=== PATIENT | female | born 1945 | race Caucasian/White ===

== ENCOUNTER 2017-08-22 09:06 | Outpatient (RCR) | payer MEDICARE ==
[2017-08-22 09:25] LABS: BASOPHILS # (AUTO) 0.1 10^3/uL (0.0-0.1); BASOPHILS % (AUTO) 1 % (0-10); EOSINOPHILS # (AUTO) 0.1 10^3/uL (0.0-0.3); EOSINOPHILS % (AUTO) 3 % (0-10); HEMATOCRIT 43 % (35-52); HEMOGLOBIN 14.8 G/DL (11.5-16.0); LYMPHOCYTES # (AUTO) 1.2 X 10^3 (1.0-4.0); LYMPHOCYTES % (AUTO) 30 % (12-44); MEAN CORPUSCULAR HEMOGLOBIN 31 PG (25-34); MEAN CORPUSCULAR HGB CONC 34 G/DL (32-36); MEAN CORPUSCULAR VOLUME 90 FL (80-99); MEAN PLATELET VOLUME 9.1 FL (7.4-10.4); MONOCYTES # (AUTO) 0.5 X 10^3 (0.0-1.0); MONOCYTES % (AUTO) 12 % (0-12); NEUTROPHILS # (AUTO) 2.2 X 10^3 (1.8-7.8); NEUTROPHILS % (AUTO) 54 % (42-75); PLATELET COUNT 246 10^3/uL (130-400); RED BLOOD COUNT 4.78 10^6/uL (4.35-5.85); RED CELL DISTRIBUTION WIDTH 14.9 % (10.0-14.5)
[2017-08-22 09:52] LABS: ALANINE AMINOTRANSFERASE 28 U/L (0-55); ALBUMIN 4.1 GM/DL (3.2-4.5); ALKALINE PHOSPHATASE 79 U/L (40-136); BILIRUBIN,TOTAL 0.3 MG/DL (0.1-1.0); BUN/CREATININE RATIO 19; CALCIUM 9.8 MG/DL (8.5-10.1); CARBON DIOXIDE 27 MMOL/L (21-32); CHLORIDE 107 MMOL/L (98-107); CREATININE SERUM 0.75 MG/DL (0.60-1.30); GFR ESTIMATED > 60; POTASSIUM 4.3 MMOL/L (3.6-5.0); SODIUM 141 MMOL/L (135-145); TOTAL PROTEIN 7.1 GM/DL (6.4-8.2)
[2017-08-22 09:54] LABS: GLUCOSE 53 MG/DL (70-105)
== END 2017-09-11 | disposition home or self-care (01) ==
LOC: ONC 09:06
PROVIDERS: ATTEND Internal Medicine Hematology & Oncology
DX: Z51.0 Encounter for antineoplastic radiation therapy (principal); D05.11 Intraductal carcinoma in situ of right breast
CPT/HCPCS: 77280; 77290; 77295; 77300; 77307; 77334; 77336; 77417; 80053; 85025; 99204; 99213; 99214

== ENCOUNTER → 2017-12-17 | Outpatient (RCR) | payer MEDICARE ==
[2017-09-18 13:08] LABS: BASOPHILS % (AUTO) 1 % (0-10); EOSINOPHILS # (AUTO) 0.1 10^3/uL (0.0-0.3); EOSINOPHILS % (AUTO) 2 % (0-10); HEMATOCRIT 43 % (35-52); HEMOGLOBIN 14.3 G/DL (11.5-16.0); LYMPHOCYTES # (AUTO) 1.5 X 10^3 (1.0-4.0); LYMPHOCYTES % (AUTO) 28 % (12-44); MEAN CORPUSCULAR HEMOGLOBIN 30 PG (25-34); MEAN CORPUSCULAR HGB CONC 34 G/DL (32-36); MEAN CORPUSCULAR VOLUME 90 FL (80-99); MEAN PLATELET VOLUME 8.8 FL (7.4-10.4); MONOCYTES # (AUTO) 0.4 X 10^3 (0.0-1.0); MONOCYTES % (AUTO) 8 % (0-12); NEUTROPHILS # (AUTO) 3.3 X 10^3 (1.8-7.8); NEUTROPHILS % (AUTO) 62 % (42-75); PLATELET COUNT 239 10^3/uL (130-400); RED BLOOD COUNT 4.72 10^6/uL (4.35-5.85); RED CELL DISTRIBUTION WIDTH 14.9 % (10.0-14.5); WHITE BLOOD COUNT 5.4 10^3/uL (4.3-11.0)
[2017-09-18 13:37] LABS: ALANINE AMINOTRANSFERASE 12 U/L (0-55); ALKALINE PHOSPHATASE 72 U/L (40-136); BILIRUBIN,TOTAL 0.4 MG/DL (0.1-1.0); BUN/CREATININE RATIO 24; CALCIUM 8.7 MG/DL (8.5-10.1); CARBON DIOXIDE 26 MMOL/L (21-32); CHLORIDE 108 MMOL/L (98-107); CREATININE SERUM 0.74 MG/DL (0.60-1.30); GFR ESTIMATED > 60; POTASSIUM 3.8 MMOL/L (3.6-5.0); SODIUM 142 MMOL/L (135-145); TOTAL PROTEIN 6.7 GM/DL (6.4-8.2)
[2017-09-18 13:38] LABS: GLUCOSE 52 MG/DL (70-105)
[2017-12-17 12:44] LABS: BASOPHILS % (AUTO) 1 % (0-10); EOSINOPHILS # (AUTO) 0.2 10^3/uL (0.0-0.3); EOSINOPHILS % (AUTO) 4 % (0-10); HEMATOCRIT 43 % (35-52); HEMOGLOBIN 14.2 G/DL (11.5-16.0); LYMPHOCYTES # (AUTO) 1.5 X 10^3 (1.0-4.0); LYMPHOCYTES % (AUTO) 27 % (12-44); MEAN CORPUSCULAR HEMOGLOBIN 31 PG (25-34); MEAN CORPUSCULAR HGB CONC 33 G/DL (32-36); MEAN CORPUSCULAR VOLUME 93 FL (80-99); MEAN PLATELET VOLUME 8.8 FL (7.4-10.4); MONOCYTES # (AUTO) 0.5 X 10^3 (0.0-1.0); MONOCYTES % (AUTO) 8 % (0-12); NEUTROPHILS # (AUTO) 3.4 X 10^3 (1.8-7.8); NEUTROPHILS % (AUTO) 61 % (42-75); PLATELET COUNT 257 10^3/uL (130-400); RED BLOOD COUNT 4.61 10^6/uL (4.35-5.85); RED CELL DISTRIBUTION WIDTH 14.9 % (10.0-14.5); WHITE BLOOD COUNT 5.6 10^3/uL (4.3-11.0)
[2017-12-17 13:07] LABS: ALANINE AMINOTRANSFERASE 15 U/L (0-55); ALKALINE PHOSPHATASE 54 U/L (40-136); BILIRUBIN,TOTAL 0.4 MG/DL (0.1-1.0); BUN/CREATININE RATIO 18; CALCIUM 8.9 MG/DL (8.5-10.1); CARBON DIOXIDE 28 MMOL/L (21-32); CHLORIDE 110 MMOL/L (98-107); CREATININE SERUM 0.79 MG/DL (0.60-1.30); GFR ESTIMATED > 60; GLUCOSE 78 MG/DL (70-105); POTASSIUM 3.9 MMOL/L (3.6-5.0); SODIUM 143 MMOL/L (135-145); TOTAL PROTEIN 6.7 GM/DL (6.4-8.2)
== END | disposition home or self-care (01) ==
LOC: ONC 09-18 12:46
PROVIDERS: ATTEND Internal Medicine Hematology & Oncology
DX: D05.11 Intraductal carcinoma in situ of right breast (principal)
CPT/HCPCS: 36415; 80053; 85025; 99213

== ENCOUNTER 2018-07-04 09:18 | Outpatient (RCR) | payer MEDICARE ==
[2018-07-04 09:26] LABS: BASOPHILS # (AUTO) 0.1 10^3/uL (0.0-0.1); BASOPHILS % (AUTO) 1 % (0-10); EOSINOPHILS # (AUTO) 0.1 10^3/uL (0.0-0.3); EOSINOPHILS % (AUTO) 2 % (0-10); HEMATOCRIT 42 % (35-52); HEMOGLOBIN 13.9 G/DL (11.5-16.0); LYMPHOCYTES # (AUTO) 1.8 X 10^3 (1.0-4.0); LYMPHOCYTES % (AUTO) 31 % (12-44); MEAN CORPUSCULAR HEMOGLOBIN 31 PG (25-34); MEAN CORPUSCULAR HGB CONC 33 G/DL (32-36); MEAN CORPUSCULAR VOLUME 95 FL (80-99); MEAN PLATELET VOLUME 8.8 FL (7.4-10.4); MONOCYTES # (AUTO) 0.5 X 10^3 (0.0-1.0); MONOCYTES % (AUTO) 8 % (0-12); NEUTROPHILS # (AUTO) 3.3 X 10^3 (1.8-7.8); NEUTROPHILS % (AUTO) 58 % (42-75); PLATELET COUNT 254 10^3/uL (130-400); RED CELL DISTRIBUTION WIDTH 14.5 % (10.0-14.5); WHITE BLOOD COUNT 5.7 10^3/uL (4.3-11.0)
[2018-07-04 09:44] LABS: ALANINE AMINOTRANSFERASE 21 U/L (0-55); ALKALINE PHOSPHATASE 60 U/L (40-136); BILIRUBIN,TOTAL 0.3 MG/DL (0.1-1.0); BUN/CREATININE RATIO 18; CALCIUM 9.3 MG/DL (8.5-10.1); CARBON DIOXIDE 22 MMOL/L (21-32); CHLORIDE 108 MMOL/L (98-107); CREATININE SERUM 0.76 MG/DL (0.60-1.30); GFR ESTIMATED > 60; GLUCOSE 91 MG/DL (70-105); POTASSIUM 4.3 MMOL/L (3.6-5.0); SODIUM 141 MMOL/L (135-145); TOTAL PROTEIN 6.7 GM/DL (6.4-8.2)
== END 2018-10-02 | disposition home or self-care (01) ==
LOC: ONC 09:18
PROVIDERS: ATTEND Internal Medicine Hematology & Oncology
DX: D05.11 Intraductal carcinoma in situ of right breast (principal); M19.91 Primary osteoarthritis, unspecified site; Z79.810 Long term (current) use of selective estrogen receptor modulators (SERMs); Z79.82 Long term (current) use of aspirin; Z79.899 Other long term (current) drug therapy
CPT/HCPCS: 36415; 80053; 85025

== ENCOUNTER 2018-12-23 10:03 | Outpatient (RCR) | payer MEDICARE ==
[2018-12-23 10:33] LABS: BASOPHILS # (AUTO) 0.1 10^3/uL (0.0-0.1); BASOPHILS % (AUTO) 1 % (0-10); EOSINOPHILS # (AUTO) 0.2 10^3/uL (0.0-0.3); EOSINOPHILS % (AUTO) 3 % (0-10); HEMATOCRIT 42 % (35-52); HEMOGLOBIN 13.9 G/DL (11.5-16.0); LYMPHOCYTES # (AUTO) 1.7 X 10^3 (1.0-4.0); LYMPHOCYTES % (AUTO) 33 % (12-44); MEAN CORPUSCULAR HEMOGLOBIN 32 PG (25-34); MEAN CORPUSCULAR HGB CONC 33 G/DL (32-36); MEAN CORPUSCULAR VOLUME 94 FL (80-99); MEAN PLATELET VOLUME 8.8 FL (7.4-10.4); MONOCYTES # (AUTO) 0.4 X 10^3 (0.0-1.0); MONOCYTES % (AUTO) 8 % (0-12); NEUTROPHILS # (AUTO) 2.8 X 10^3 (1.8-7.8); NEUTROPHILS % (AUTO) 54 % (42-75); PLATELET COUNT 244 10^3/uL (130-400); RED CELL DISTRIBUTION WIDTH 14.3 % (10.0-14.5); WHITE BLOOD COUNT 5.1 10^3/uL (4.3-11.0)
[2018-12-23 10:50] LABS: ALANINE AMINOTRANSFERASE 17 U/L (0-55); ALBUMIN 3.9 GM/DL (3.2-4.5); ALKALINE PHOSPHATASE 62 U/L (40-136); BILIRUBIN,TOTAL 0.4 MG/DL (0.1-1.0); BUN/CREATININE RATIO 18; CALCIUM 8.6 MG/DL (8.5-10.1); CARBON DIOXIDE 27 MMOL/L (21-32); CHLORIDE 108 MMOL/L (98-107); CREATININE SERUM 0.78 MG/DL (0.60-1.30); GFR ESTIMATED > 60; GLUCOSE 79 MG/DL (70-105); POTASSIUM 4.1 MMOL/L (3.6-5.0); SODIUM 140 MMOL/L (135-145); TOTAL PROTEIN 6.4 GM/DL (6.4-8.2)
== END 2019-03-23 | disposition home or self-care (01) ==
LOC: ONC 10:03
PROVIDERS: ATTEND Internal Medicine Hematology & Oncology
DX: D05.11 Intraductal carcinoma in situ of right breast (principal); M19.91 Primary osteoarthritis, unspecified site; Z79.810 Long term (current) use of selective estrogen receptor modulators (SERMs); Z79.82 Long term (current) use of aspirin; Z79.899 Other long term (current) drug therapy
CPT/HCPCS: 36415; 80053; 85025; 99213

== ENCOUNTER → 2019-01-27 | Outpatient (CLI) | payer MEDICARE ==
--- NOTE | 2019-01-27 15:53 | Diagnostic Imaging Report ---
INDICATION: Postmenopausal screening for osteoporosis. COMPARISON: None. FINDINGS: AP Spine L1-L4: [BMD (g/cm2): 1.075] [T-Score: -1.0] [Z-Score: 0.8] [BMD Previous: NA] [BMD % Change: NA] LT Hip Neck: [BMD (g/cm2): 0.835] [T-Score: -1.5] [Z-Score: 0.5] LT Hip Total: [BMD (g/cm2):0.905] [T-Score:-0.8] [Z-Score: 1.0] [BMD Previous: NA] [BMD % Change: NA] RT Hip Neck: [BMD (g/cm2):NA] [T-Score:NA] [Z-Score:NA] RT Hip Total: [BMD (g/cm2):NA] [T-score:NA] [Z-Score:NA] [BMD Previous:NA] [BMD % Change:NA] *Indicates significant change from prior examination based on 95% confidence level. World Health Organization criteria for BMD interpretation classify patients as Normal (T-score at or above -1.0), Osteopenic (T-score between -1.0 and -2.5) or Osteoporotic (T-score at or below -2.5). LIMITATIONS AND MODIFICATION: None. FRACTURE RISK (FRAX SCORE): The ten year probability of (%): Major Osteoporotic Fracture: [17.7] Hip Fracture: [3.4] IMPRESSION: 1. Osteopenia (Low bone mass). 2. Baseline examination. 3. See below National Osteoporosis Foundation guidelines on when to potentially initiate pharmacologic therapy. Based on the National Osteoporosis Foundation Guidelines, pharmacologic treatment should be initiated in any of the following, unless clinical conditions suggest otherwise: * Any patient with prior fragility fracture of the hip or vertebrae. A spine fracture indicates 5X risk for subsequent spine fracture and 2X risk for subsequent hip fracture. * Osteoporosis (T-score <-2.5). * Postmenopausal women and men age 50 and older with low bone mass/osteopenia (T-score between -1.0 and -2.5) by DXA and 10-year major osteoporotic fracture greater than 20% or a 10-year probability of hip fracture greater than 3%. These fracture risks are supplied above in the FRAX score, if applicable. * Clinician judgement and/or patient preferences may indicate treatment for people with 10-year fracture probabilities above or below these levels. Dictated by: Dictated on workstation # [id number]
== END ==
LOC: RAD 13:06
PROVIDERS: ATTEND Family Medicine
DX: Z13.820 Encounter for screening for osteoporosis (principal); M85.80 Other specified disorders of bone density and structure, unspecified site; Z78.0 Asymptomatic menopausal state
CPT/HCPCS: 77080

== ENCOUNTER 2019-09-24 10:16 | Outpatient (RCR) | payer MEDICARE | END 2019-12-23 | disposition home or self-care (01) | LOC: ONC 10:16 | PROVIDERS: ATTEND Internal Medicine Hematology & Oncology | DX: D05.11 Intraductal carcinoma in situ of right breast (principal); M19.91 Primary osteoarthritis, unspecified site; Z79.810 Long term (current) use of selective estrogen receptor modulators (SERMs); Z79.82 Long term (current) use of aspirin; Z79.899 Other long term (current) drug therapy | CPT/HCPCS: 99213 ==

== ENCOUNTER 2020-03-30 09:58 | Outpatient (RCR) | payer MEDICARE ==
[2020-03-30 10:19] LABS: BASOPHILS # (AUTO) 0.1 10^3/uL (0.0-0.1); BASOPHILS % (AUTO) 1 % (0-10); EOSINOPHILS # (AUTO) 0.2 10^3/uL (0.0-0.3); EOSINOPHILS % (AUTO) 4 % (0-10); HEMATOCRIT 44 % (35-52); HEMOGLOBIN 14.3 g/dL (11.5-16.0); LYMPHOCYTES # (AUTO) 1.8 10^3/uL (1.0-4.0); LYMPHOCYTES % (AUTO) 33 % (12-44); MEAN CORPUSCULAR HEMOGLOBIN 31 pg (25-34); MEAN CORPUSCULAR HGB CONC 33 g/dL (32-36); MEAN CORPUSCULAR VOLUME 96 fL (80-99); MEAN PLATELET VOLUME 8.7 fL (9.0-12.2); MONOCYTES # (AUTO) 0.5 10^3/uL (0.0-1.0); MONOCYTES % (AUTO) 8 % (0-12); NEUTROPHILS % (AUTO) 54 % (42-75); PLATELET COUNT 237 10^3/uL (130-400); WHITE BLOOD COUNT 5.6 10^3/uL (4.3-11.0)
[2020-03-30 10:41] LABS: ALANINE AMINOTRANSFERASE 22 U/L (0-55); ALBUMIN 3.8 GM/DL (3.2-4.5); ALKALINE PHOSPHATASE 58 U/L (40-136); BILIRUBIN,TOTAL 0.3 MG/DL (0.1-1.0); BUN/CREATININE RATIO 21; CALCIUM 9.1 MG/DL (8.5-10.1); CARBON DIOXIDE 28 MMOL/L (21-32); CHLORIDE 107 MMOL/L (98-107); CREATININE SERUM 0.78 MG/DL (0.60-1.30); GFR ESTIMATED > 60; GLUCOSE 76 MG/DL (70-105); POTASSIUM 4.2 MMOL/L (3.6-5.0); SODIUM 141 MMOL/L (135-145); TOTAL PROTEIN 6.8 GM/DL (6.4-8.2)
== END 2020-06-28 | disposition home or self-care (01) ==
LOC: ONC 09:58
PROVIDERS: ATTEND Internal Medicine Hematology & Oncology
DX: D05.11 Intraductal carcinoma in situ of right breast (principal); Z98.890 Other specified postprocedural states; Z92.3 Personal history of irradiation
CPT/HCPCS: 80053; 85025; G0463; 99213

== ENCOUNTER → 2020-10-06 | Outpatient (CLI) | payer MEDICARE ==
[2020-10-06 10:44] LABS: BASOPHILS # (AUTO) 0.1 10^3/uL (0.0-0.1); BASOPHILS % (AUTO) 1 % (0-10); EOSINOPHILS # (AUTO) 0.2 10^3/uL (0.0-0.3); EOSINOPHILS % (AUTO) 3 % (0-10); HEMATOCRIT 42 % (35-52); HEMOGLOBIN 13.8 g/dL (11.5-16.0); LYMPHOCYTES # (AUTO) 2.2 10^3/uL (1.0-4.0); LYMPHOCYTES % (AUTO) 34 % (12-44); MEAN CORPUSCULAR HEMOGLOBIN 32 pg (25-34); MEAN CORPUSCULAR HGB CONC 33 g/dL (32-36); MEAN CORPUSCULAR VOLUME 96 fL (80-99); MEAN PLATELET VOLUME 8.7 fL (9.0-12.2); MONOCYTES # (AUTO) 0.5 10^3/uL (0.0-1.0); MONOCYTES % (AUTO) 7 % (0-12); NEUTROPHILS # (AUTO) 3.5 10^3/uL (1.8-7.8); NEUTROPHILS % (AUTO) 55 % (42-75); PLATELET COUNT 239 10^3/uL (130-400); WHITE BLOOD COUNT 6.4 10^3/uL (4.3-11.0)
[2020-10-06 11:10] LABS: ALANINE AMINOTRANSFERASE 21 U/L (0-55); ALBUMIN 3.6 GM/DL (3.2-4.5); ALKALINE PHOSPHATASE 58 U/L (40-136); BILIRUBIN,TOTAL 0.3 MG/DL (0.1-1.0); BUN/CREATININE RATIO 14; CALCIUM 8.7 MG/DL (8.5-10.1); CARBON DIOXIDE 28 MMOL/L (21-32); CHLORIDE 108 MMOL/L (98-107); CREATININE SERUM 0.84 MG/DL (0.60-1.30); GFR ESTIMATED > 60; GLUCOSE 91 MG/DL (70-105); POTASSIUM 4.1 MMOL/L (3.6-5.0); SODIUM 141 MMOL/L (135-145); TOTAL PROTEIN 6.2 GM/DL (6.4-8.2)
== END ==
LOC: EDSTATUS 06-29 10:37 → ONC 10:29
PROVIDERS: ATTEND Internal Medicine Hematology & Oncology
DX: D05.11 Intraductal carcinoma in situ of right breast (principal); Z92.3 Personal history of irradiation; Z90.11 Acquired absence of right breast and nipple
CPT/HCPCS: 80053; 85025; G0463; 99213

== ENCOUNTER → 2022-01-26 | Outpatient (CLI) | payer MEDICARE ==
[~2022-01-26] MED LIST: BARIUM for suspension 96% w/w (Vanilla Silq Medium Density) PO ONE; BARIUM for suspension 98% w/w (Vanilla Silq High Density) PO ONE
--- NOTE | 2022-01-26 12:22 | Diagnostic Imaging Report ---
INDICATION: Dysphagia. Patient ingested effervescent crystals as well as thin and thick barium and imaging of the esophagus was performed in multiple obliquities. Total of 0.6 minutes of fluoroscopic time was utilized. The esophagus has a smooth contour. There are occasional tertiary contractions present. No mass or stricture is identified. No gastroesophageal reflux was demonstrated. There is a small to moderate-sized sliding-type hiatal hernia. Images of the stomach are unremarkable. IMPRESSION: Small to moderate-sized sliding-type hiatal hernia. No other significant abnormality is detected. Dictated by: Dictated on workstation # [id number]
== END ==
LOC: RAD 09:46
PROVIDERS: ATTEND Surgery
DX: K44.9 Diaphragmatic hernia without obstruction or gangrene (principal)
CPT/HCPCS: 74220

== ENCOUNTER 2022-02-05 12:10 | Outpatient (CLI) | payer MEDICARE ==
[~2022-02-05] VITALS: Ht 160 cm; Wt 63.0 kg
[2022-02-05] MEDS ORDERED: MELA10CA2 PO (12:32)
[2022-02-05] MEDS ORDERED: GARL10002 PO ×2 (12:32)
[2022-02-05] MEDS ORDERED: DIPH50CA33 PO (12:32)
[2022-02-05] MEDS ORDERED: LEVO88CA4 PO (12:32)
[2022-02-05] MEDS ORDERED: FLAX10004 PO (12:32)
[2022-02-05] MEDS ORDERED: LOVA10TA PO (12:32)
[2022-02-05] MEDS ORDERED: ASPI-1238 PO (12:32)
[2022-02-05] MEDS ORDERED: CALC-308 PO (12:32)
[2022-02-05] MEDS ORDERED: TAMO20TA2 PO (12:32)
[2022-02-05] MEDS ORDERED: DOCU100C37 PO (12:32)
[2022-02-05] MEDS ORDERED: GLUC-132 PO (12:32)
[2022-02-05] MEDS ORDERED: OMEG-166 PO (12:32)
[2022-02-05] MEDS ORDERED: CHOL200059 PO (12:32)
== END 2022-02-05 12:46 | disposition home or self-care (01) ==
LOC: PREOP 12:10
PROVIDERS: ATTEND Surgery
DX: Z01.818 Encounter for other preprocedural examination (principal)

== ENCOUNTER 2022-02-20 10:13 | Day surgery (SDC) | payer MEDICARE ==
[~2022-02-20] VITALS: Ht 160 cm; Wt 63.0 kg
[~2022-02-20 10:13] MED LIST changes: +ASPI-1238 PO; -BARIUM for suspension 96% w/w (Vanilla Silq Medium Density) PO ONE; -BARIUM for suspension 98% w/w (Vanilla Silq High Density) PO ONE; +CALC-308 PO; +CHOL200059 PO; +DIPH50CA33 PO; +DOCU100C37 PO; +FLAX10004 PO; +GARL10002 PO; +GLUC-132 PO; +LEVO88CA4 PO; +LOVA10TA PO; +MELA10CA2 PO; +OMEG-166 PO; +TAMO20TA2 PO
[2022-02-20] MEDS ORDERED: LACTATED RINGERS 1,000 ML IV STA (10:24)
[2022-02-20] MEDS ORDERED: HURRICAINE EXT TUBE (BENZOCAINE) XX PRN (10:30)
[2022-02-20 10:35] VITALS: BP 147/75
[2022-02-20] MEDS ORDERED: PROPOFOL INJECTION 50 ML IV ONE (10:48)
[2022-02-20] MEDS ORDERED: PANT40TA2 PO (11:40)
--- NOTE | 2022-02-20 11:40 | Discharge Inst-Simple/Standard ---
Discharge Inst-Standard Patient Instructions/Follow Up Plan of Care/Instructions/FU: Follow up in [address] Augustin Activity as Tolerated: Yes Discharge Diet: No Restrictions, Regular Diet CANDY AUGUSTIN DO Feb 20, 2022 11:40
[2022-02-20 11:44] VITALS: BP 114/52
[2022-02-20 11:50] VITALS: BP 112/58
[2022-02-20 12:27] VITALS: BP 150/73
--- NOTE | 2022-02-20 13:44 | Anesthesia-General Post-Op ---
MAC Patient Condition Mental Status/LOC: Same as Preop Cardiovascular: Satisfactory Nausea/Vomiting: Absent Respiratory: Satisfactory Pain: Controlled Complications: Absent Post Op Complications Complications None Follow Up Care/Instructions Patient Instructions None needed. Anesthesiology Discharge Order Discharge Order Patient is doing well, no complaints, stable vital signs, no apparent adverse anesthesia problems. No complications reported per nursing. MORIAH SOTO CRNA Feb 20, 2022 13:44
--- NOTE | 2022-02-20 22:21 | OPERATIVE REPORT ---
DATE OF SERVICE: 02/20/2022 PREOPERATIVE DIAGNOSES: History of polyps, dysphagia. POSTOPERATIVE DIAGNOSES: Small hiatal hernia, gastritis, reflux esophagitis, sigmoid colon polyp and some hemorrhoids. PROCEDURE: EGD with biopsies, colonoscopy with hot biopsy polypectomy x1. SURGEON: Candy Augustin DO. ANESTHESIA: Per POINTER HELPER. ESTIMATED BLOOD LOSS: None. COMPLICATIONS: None. INDICATIONS: The patient is a 77-year-old female, who has a history of polyps and also dysphagia. She wanted to have EGD and colonoscopy performed for further evaluation. She understands the risks and benefits and wishes to proceed. Consent was signed in chart. DESCRIPTION OF PROCEDURE: The patient was taken to the endoscopy suite, placed in the left lateral recumbent position. A timeout was performed. Scope was inserted in the mouth, down the esophagus, stomach and into the duodenum without any polyps, masses or ulcerations. Scope was slowly retracted back into the stomach where it was further insufflated. Slight changes of gastritis present in the antrum. Biopsy antrum was obtained. Scope was retroflexed noting a small sliding hiatal hernia. No other pathology. Scope was returned to its normal position and slowly withdrawn to the distal esophagus, noting some reflux esophagitis present. Biopsy of the GE junction was obtained. Scope was slowly retracted back, completely removed, noting no other pathology. Digital rectal exam was performed. No palpable polyps, masses or ulcerations. Scope was inserted into the rectum and advanced all the way to the cecum with minimal difficulty. The prep was adequate. Scope was slowly retracted back. No polyps, mass, ulceration of the cecum, ascending, transverse, descending colon, and sigmoid colon. A small polyp was present, which hot biopsy polypectomy was performed. The scope was continuously and slowly retracted back into the rectum where it was inserted and retracted multiple times, noting no other pathology except for hemorrhoids. Scope was then slowly retracted until completely removed. The patient tolerated the procedure well without complications. She was taken to recovery room in stable condition. RECOMMENDATIONS: The patient will be started on Protonix 40 mg daily. She will follow up in a couple weeks to discuss pathology results. Would need a repeat colonoscopy on as needed basis. CC: -- requested, unable to deliver. Job ID: [id number] DocumentID: [id number] Dictated Date: 02/20/2022 11:42:58 Physiotherapy Assistant Date: 02/20/2022 22:18:00 Dictated By: CANDY AUGUSTIN DO
== END 2022-02-20 12:57 | disposition home or self-care (01) ==
LOC: ENDO 10:13
PROVIDERS: ATTEND Surgery
DX: Z12.11 Encounter for screening for malignant neoplasm of colon (principal); D12.5 Benign neoplasm of sigmoid colon; K64.9 Unspecified hemorrhoids; K29.70 Gastritis, unspecified, without bleeding; K21.00 Gastro-esophageal reflux disease with esophagitis, without bleeding; K44.9 Diaphragmatic hernia without obstruction or gangrene; Z28.310 Unvaccinated for COVID-19; Z85.3 Personal history of malignant neoplasm of breast
CPT/HCPCS: 88305